=== PATIENT | female | born 1945 | race Hispanic/Latino ===

== ENCOUNTER 2018-08-07 07:48 | Outpatient (RCR) | payer OTHER ==
[~2018-08-07 07:48] MED LIST: HYDROCHLOROTHIA25 MG PO; LOSARTAN POTAS100 MG PO; SIMVASTATIN20 MG PO
== END 2018-08-09 ==
LOC: OT 07:48
PROVIDERS: ATTEND Specialist
DX: S62.604D Fracture of unspecified phalanx of right ring finger, subsequent encounter for fracture with routine healing (principal); S46.001D Unspecified injury of muscle(s) and tendon(s) of the rotator cuff of right shoulder, subsequent encounter; M79.641 Pain in right hand; M25.641 Stiffness of right hand, not elsewhere classified; M25.511 Pain in right shoulder; M25.611 Stiffness of right shoulder, not elsewhere classified; R53.1 Weakness; G56.02 Carpal tunnel syndrome, left upper limb; M25.632 Stiffness of left wrist, not elsewhere classified; R20.8 Other disturbances of skin sensation

== ENCOUNTER 2018-08-14 10:30 | Outpatient (RCR) | payer OTHER | END 2018-09-09 | LOC: OT 10:30 | PROVIDERS: ATTEND Specialist | DX: M79.641 Pain in right hand (principal); S62.604D Fracture of unspecified phalanx of right ring finger, subsequent encounter for fracture with routine healing; M25.511 Pain in right shoulder; S46.001D Unspecified injury of muscle(s) and tendon(s) of the rotator cuff of right shoulder, subsequent encounter; M25.611 Stiffness of right shoulder, not elsewhere classified; R53.1 Weakness ==